=== PATIENT | male | born 1975 | race African-American/Black ===

== ENCOUNTER 2019-03-02 09:08 | Emergency (ER) | payer SELFPAY ==
[2019-03-02] MEDS ORDERED: Acetaminophen 500 MG TAB ONE (10:10)
[2019-03-02 10:56] LABS: #Basophils 0.1 thou/uL (0.0-0.2); #Eosinphils 0.2 thou/uL (0.0-0.7); #Lymphocytes 2.4 thou/uL (1.20-3.40); #Monocytes 0.7 thou/uL (0.11-0.59); #Neutrophils 3.9 thou/uL (1.40-6.50); %Eosinophils 2.4 % (0.0-10.0); %Lymphocytes 33.6 % (21.0-51.0); %Monocytes 9.2 % (0.0-10.0); %Neutrophils 53.8 % (42.0-75.0); Hemoglobin 14.2 g/dL (14.0-18.0); Mean Corpuscular Hemoglobin 30.3 pg (27.0-31.0); Mean Corpuscular Volume 91.9 fL (78.0-98.0); Mean Platelet Volume 7.4 fL (7.4-10.4); Platelet Count 167 thou/uL (130-400); RBC Distribution Width 12.9 % (11.5-14.5); Red Blood Cell (RBC) Count 4.66 mill/uL (4.70-6.10); White Blood Cell (WBC) Count 7.2 thou/uL (4.8-10.8)
[2019-03-02 11:12] LABS: ALT (SGPT) 23 U/L (8-55); AST (SGOT) 24 U/L (5-34); Albumin 3.9 g/dL (3.5-5.0); Alkaline Phosphatase 81 U/L (40-110); Anion Gap 11 mmol/L (10-20); BUN (Urea Nitrogen) 13 mg/dL (8.9-20.6); Bilirubin, Total 0.5 mg/dL (0.2-1.2); Calc. Creatinine Clearance 0 mL/min (70-130); Calcium 8.7 mg/dL (7.8-10.44); Carbon Dioxide 26 mmol/L (22-29); Chloride 107 mmol/L (98-107); Estimated GFR-MDRD Greater than 90; Globulin 3.1 g/dL (2.4-3.5); Glucose 88 mg/dL (70-105); Potassium 3.9 mmol/L (3.5-5.1); Sodium 140 mmol/L (136-145)
--- NOTE | 2019-03-02 11:22 | RAD ---
2 view chest: [03/02/2019] Comparison:None available HISTORY: Chest discomfort FINDINGS: Heart and mediastinal contours are grossly unremarkable. No pneumothorax or pleural fluid. No focal consolidation or alveolar edema. IMPRESSION: No acute findings.
== END 2019-03-02 11:50 | disposition home or self-care (01) ==
LOC: ERS 09:08
DX: I10 Essential (primary) hypertension (principal); F41.9 Anxiety disorder, unspecified; F32.9 Major depressive disorder, single episode, unspecified; F17.210 Nicotine dependence, cigarettes, uncomplicated; E78.5 Hyperlipidemia, unspecified; E78.00 Pure hypercholesterolemia, unspecified; Z79.899 Other long term (current) drug therapy
CPT/HCPCS: 36415; 71046; 80053; 84484; 85025; 93005

== ENCOUNTER 2019-10-26 13:30 | Emergency (ER) | payer OTHER, SELFPAY ==
[2019-10-27 15:24] LABS: SARS-CoV-2 MS2 Positive; SARS-CoV-2 N Gene Positive; SARS-CoV-2 S Gene Positive; SARS-CoV-2 orf1ab Negative
== END 2019-10-26 14:30 | disposition home or self-care (01) ==
LOC: ERS 13:30
DX: U07.1 COVID-19 (principal); E78.5 Hyperlipidemia, unspecified; E78.00 Pure hypercholesterolemia, unspecified; I10 Essential (primary) hypertension; F41.9 Anxiety disorder, unspecified; F32.9 Major depressive disorder, single episode, unspecified; F17.210 Nicotine dependence, cigarettes, uncomplicated
CPT/HCPCS: 87635; 99283; U0003

== ENCOUNTER 2020-06-18 19:05 | Observation (INO) | payer SELFPAY ==
[2020-06-18 19:25] LABS: #Basophils 0.1 thou/uL (0.0-0.2); #Eosinphils 0.1 thou/uL (0.0-0.7); #Lymphocytes 2.3 thou/uL (1.20-3.40); #Monocytes 1.1 thou/uL (0.11-0.59); %Basophils 0.9 % (0.0-1.0); %Eosinophils 0.5 % (0.0-10.0); %Lymphocytes 20.2 % (21.0-51.0); %Monocytes 9.1 % (0.0-10.0); %Neutrophils 69.3 % (42.0-75.0); Hemoglobin 16.1 g/dL (14.0-18.0); Mean Corpuscular HGB CONC 31.9 g/dL (32.0-36.0); Mean Corpuscular Hemoglobin 30.6 pg (27.0-31.0); Mean Corpuscular Volume 96.1 fL (78.0-98.0); Mean Platelet Volume 7.6 fL (7.4-10.4); Platelet Count 209 thou/uL (130-400); RBC Distribution Width 13.2 % (11.5-14.5); Red Blood Cell (RBC) Count 5.26 mill/uL (4.70-6.10); White Blood Cell (WBC) Count 11.5 thou/uL (4.8-10.8)
[2020-06-18 19:47] LABS: ALT (SGPT) 16 U/L (8-55); AST (SGOT) 17 U/L (5-34); Albumin 3.4 g/dL (3.5-5.0); Alkaline Phosphatase 62 U/L (40-110); Anion Gap 15 mmol/L (10-20); BUN (Urea Nitrogen) 17 mg/dL (8.9-20.6); Bilirubin, Total 0.5 mg/dL (0.2-1.2); Calc. Creatinine Clearance 0 mL/min (70-130); Calcium 7.9 mg/dL (7.8-10.44); Carbon Dioxide 21 mmol/L (22-29); Chloride 107 mmol/L (98-107); Globulin 2.5 g/dL (2.4-3.5); Glucose 126 mg/dL (70-105); Potassium 4.3 mmol/L (3.5-5.1); Protein, Total 5.9 g/dL (6.0-8.3); Sodium 139 mmol/L (136-145)
[2020-06-18] MEDS ORDERED: Ketorolac Tromethamine 30 MG/ML VIAL ONE (21:24)
[2020-06-18 22:58] LABS: Troponin I 0.014 ng/mL (< 0.028)
[2020-06-19] MEDS ORDERED: Acetaminophen 325 MG TAB PO PRN (00:04)
[2020-06-19] MEDS ORDERED: Calcium Carbonate 500 MG ChewTAB PO PRN (00:04)
[2020-06-19 02:38] LABS: Troponin I 0.015 ng/mL (< 0.028)
[2020-06-19 05:23] LABS: #Basophils 0.1 thou/uL (0.0-0.2); #Eosinphils 0.1 thou/uL (0.0-0.7); #Lymphocytes 3.8 thou/uL (1.20-3.40); #Monocytes 1.5 thou/uL (0.11-0.59); #Neutrophils 8.9 thou/uL (1.40-6.50); %Basophils 0.6 % (0.0-1.0); %Eosinophils 0.5 % (0.0-10.0); %Lymphocytes 26.5 % (21.0-51.0); %Monocytes 10.3 % (0.0-10.0); Hemoglobin 15.3 g/dL (14.0-18.0); Mean Corpuscular HGB CONC 32.1 g/dL (32.0-36.0); Mean Corpuscular Hemoglobin 31.2 pg (27.0-31.0); Mean Corpuscular Volume 97.2 fL (78.0-98.0); Mean Platelet Volume 7.6 fL (7.4-10.4); Platelet Count 168 thou/uL (130-400); RBC Distribution Width 13.1 % (11.5-14.5); Red Blood Cell (RBC) Count 4.89 mill/uL (4.70-6.10); White Blood Cell (WBC) Count 14.3 thou/uL (4.8-10.8)
[2020-06-19 05:30] VITALS: BMI 30.7
[2020-06-19 05:45] LABS: Anion Gap 12 mmol/L (10-20); BUN (Urea Nitrogen) 18 mg/dL (8.9-20.6); Calc. Creatinine Clearance 122 mL/min (70-130); Calcium 8.3 mg/dL (7.8-10.44); Carbon Dioxide 21 mmol/L (22-29); Cardiac Risk 4.3 (Less than 4.5); Chloride 111 mmol/L (98-107); Cholesterol 170 mg/dl (< 200 Desired); Glucose 99 mg/dL (70-105); HDL Cholesterol 40 mg/dL (>60 Neg Risk); LDL Cholesterol, Calculated 114 mg/dL; Potassium 4.3 mmol/L (3.5-5.1); Sodium 140 mmol/L (136-145); Triglycerides 79 mg/dL (Less than 150)
[2020-06-19] MEDS ORDERED: Ibuprofen 800 MG TAB PO PRN (08:32)
[2020-06-19] MEDS ORDERED: Enoxaparin Sodium 40 MG/0.4 ML SYRINGE SC SCH (09:00)
[2020-06-19] MEDS ORDERED: FLU VACC QS2020-21(6MOS UP)/PF 60 MCG/0.5 ML SYRINGE IM ONE (09:00)
[2020-06-19] MEDS ORDERED: Nicotine 14 MG PATCH TD SCH (09:00)
[2020-06-19] MEDS ORDERED: Amlodipine 5 MG TAB PO SCH (10:15)
[2020-06-19] MEDS ORDERED: ADENOSINE 60 MG/20 ML VIAL ONE (10:41)
[2020-06-19 12:01] LABS: Amphetamine Not Detected (NotDetected); Barbiturates Screen Not Detected (NotDetected); Benzodiazepine Screen Not Detected (NotDetected); Cocaine Metabolite Screen Detected (NotDetected); Medtox Control Line Valid? VALID (VALID); Medtox Reader # READER 4; Methadone Not Detected (NotDetected); Methamphetamine Not Detected (NotDetected); Opiate Screen Not Detected (NotDetected); Oxycodone Screen Not Detected (NotDetected); Phencyclidine (PCP) Not Detected (NotDetected); THC/Cannabinoid Screen Detected (NotDetected); Tricyclic Screen Not Detected (NotDetected)
[2020-06-19 17:04] VITALS: TEMP 98.7
[2020-06-19] MEDS ORDERED: hydrALAZINE 20 MG/ML VIAL SLOW IVP PRN (17:25)
[2020-06-19 17:36] VITALS: BP 143/87
[2020-06-19] MEDS ORDERED: Atorvastatin Calcium 40 MG TAB PO SCH (21:00)
[2020-06-20] MEDS ORDERED: Amlodipine 5 MG TAB PO SCH (09:00)
== END 2020-06-19 18:31 | disposition home or self-care (01) ==
LOC: ERS 19:05 → 2SW 21:02
PROVIDERS: ADMIT Family Medicine; ATTEND Family Medicine
DX: I95.2 Hypotension due to drugs (principal); T40.7X5A Adverse effect of cannabis (derivatives), initial encounter; I24.8 Other forms of acute ischemic heart disease; F17.210 Nicotine dependence, cigarettes, uncomplicated; I10 Essential (primary) hypertension; E78.5 Hyperlipidemia, unspecified; Z86.16 Personal history of COVID-19; W18.30XA Fall on same level, unspecified, initial encounter
CPT/HCPCS: 36415; 70450; 71045; 72125; 78452; 80048; 80053; 80061; 80306; 83880; 84484; 85025; 93005; 93017; 96374; A9500; G0378; J0153; J1885

== ENCOUNTER 2021-12-03 21:35 | Observation (INO) | payer OTHER, SELFPAY ==
[2021-12-04] MEDS ORDERED: Acetaminophen 650 MG Suppository PR PRN (00:41)
[2021-12-04] MEDS ORDERED: Ondansetron PF 4 MG/2 ML Vial IVP PRN (00:41)
[2021-12-04] MEDS ORDERED: Nitroglycerin 0.4 MG TAB (25 Tab Bottle) SL PRN (00:41)
[2021-12-04] MEDS ORDERED: Ondansetron ODT 4 MG TAB PO PRN (00:41)
[2021-12-04 00:56] VITALS: BMI 34.0
[2021-12-04] MEDS ORDERED: Aspirin Chewable 81 MG TAB PO SCH (01:00)
[2021-12-04] MEDS: hydrALAZINE 20 MG/ML VIAL SLOW IVP PRN ×2 (01:15→11:43)
[2021-12-04 01:43] LABS: Troponin I 0.015 ng/mL (< 0.028)
[2021-12-04 05:00] LABS: #Eosinphils 0.1 thou/uL (0.0-0.7); #Lymphocytes 2.8 thou/uL (1.20-3.40); #Monocytes 0.9 thou/uL (0.11-0.59); #Neutrophils 3.1 thou/uL (1.40-6.50); %Basophils 0.3 % (0.0-1.0); %Eosinophils 1.9 % (0.0-10.0); %Lymphocytes 39.9 % (21.0-51.0); %Monocytes 13.4 % (0.0-10.0); %Neutrophils 44.5 % (42.0-75.0); Hemoglobin 14.7 g/dL (14.0-18.0); Mean Corpuscular HGB CONC 33.8 g/dL (32.0-36.0); Mean Corpuscular Hemoglobin 32.1 pg (27.0-31.0); Mean Corpuscular Volume 95.1 fL (78.0-98.0); Mean Platelet Volume 7.9 fL (7.4-10.4); Platelet Count 151 thou/uL (130-400); RBC Distribution Width 11.7 % (11.5-14.5); Red Blood Cell (RBC) Count 4.58 mill/uL (4.70-6.10); White Blood Cell (WBC) Count 6.9 thou/uL (4.8-10.8)
[2021-12-04 05:10] LABS: Anion Gap 13 mmol/L (10-20); BUN (Urea Nitrogen) 11 mg/dL (8.9-20.6); Calc. Creatinine Clearance 152 mL/min (70-130); Calcium 9.2 mg/dL (7.8-10.44); Carbon Dioxide 26 mmol/L (22-29); Chloride 103 mmol/L (98-107); Estimated GFR 112; Glucose 87 mg/dL (70-105); Potassium 3.7 mmol/L (3.5-5.1); Sodium 138 mmol/L (136-145)
[2021-12-04] MEDS: Acetaminophen 325 MG TAB PO PRN ×2 (07:10→21:13)
[2021-12-04] MEDS ORDERED: ADENOSINE 60 MG/20 ML VIAL ONE (08:52)
[2021-12-04] MEDS: Hydrochlorothiazide 25 MG TAB PO SCH (11:43)
[2021-12-04] MEDS: Amlodipine 10 MG TAB PO SCH (11:43)
[2021-12-04] MEDS: Aspirin Chewable 81 MG TAB PO SCH (11:44)
[2021-12-04] MEDS ORDERED: Iopamidol-370 76% 500 ML 1 ML ONE (15:49)
[2021-12-05] MEDS ORDERED: Morphine 2 MG/ML VIAL SLOW IVP SCH (00:15)
[2021-12-05] MEDS: Aspirin Chewable 81 MG TAB PO SCH (08:46)
[2021-12-05] MEDS: Amlodipine 10 MG TAB PO SCH (08:46)
[2021-12-05] MEDS: Hydrochlorothiazide 25 MG TAB PO SCH (08:47)
[2021-12-05 11:35] VITALS: BP 140/90; TEMP 98.5
== END 2021-12-05 12:35 ==
LOC: EEVIPCON 12-04 00:10 → 2SW 12-04 00:10
PROVIDERS: ADMIT Internal Medicine; ATTEND Internal Medicine
DX: R07.81 Pleurodynia (principal); R77.8 Other specified abnormalities of plasma proteins; I16.0 Hypertensive urgency; I11.9 Hypertensive heart disease without heart failure; I08.1 Rheumatic disorders of both mitral and tricuspid valves; E78.5 Hyperlipidemia, unspecified; F17.210 Nicotine dependence, cigarettes, uncomplicated; Z79.899 Other long term (current) drug therapy; Z20.822 Contact with and (suspected) exposure to COVID-19
CPT/HCPCS: 36415; 71275; 78452; 80048; 84484; 85025; 93017; 93306; 94760; 96374; 96376; A9500; G0378; J0153; J0360; Q9967; U0003; U0005